=== PATIENT | male | born 1960 | race Caucasian/White ===

== ENCOUNTER 2016-03-21 04:47 | Emergency (ER) | payer BC ==
[2016-03-21] MEDS ORDERED: KETOROLAC 30 MG/ML VIAL ONE (05:56)
[2016-03-21] MEDS ORDERED: ONDANSETRON 4 MG VIAL ONE (05:56)
== END 2016-03-21 07:04 | disposition home or self-care (01) ==
LOC: ER 04:47
DX: N20.0 Calculus of kidney (principal); N23 Unspecified renal colic
CPT/HCPCS: 36415; 74176; 80053; 81001; 82947; 83690; 85025; 87088; 96374; 96375